=== PATIENT | male | born 1950 | race Two or more races ===

== ENCOUNTER → 2025-01-24 | Outpatient (CLI) | payer OTHER ==
[~2025-01-24] VITALS: Ht 161.3 cm; Wt 75.7 kg
[2025-01-24 15:58] VITALS: PULSE 84; RESP 15; O2SAT 96
[2025-01-24 16:14] VITALS: PULSE 85; RESP 16
[2025-01-24] MEDS: albuterol 2.5 MG/3 ML nebule NEB ONE (16:31)
--- NOTE | 2025-01-25 17:05 | PROCEDURE NOTE - Respiratory ---
Procedure Note-Respiratory Providers to CC Copies To 1: ALMITA DOE DO Procedure Name: This is a spirometry study dated January 24, 2025. The spirometry study was performed both before and after inhaled bronchodilator. Spirometry measurements: Both the forced vital capacity and the FEV1 show severe reduction. The FEV1 ratio is also reduced. All of the measured flow rates are quite low. After inhaled bronchodilator there is significant improvement in the FEV1 and some of the flow rate measurements. Conclusion: This study shows severe abnormality. There is evidence for severe obstructive ventilatory defect. The obstructive process is somewhat reversible with inhaled bronchodilator. 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 This patient should continue to use bronchodilator medication. There is also evidence for a restrictive ventilatory defect based on the significant reduction in the vital capacity measurement. This patient is status post left lower lobe lobectomy and this would partially explain the reduced vital capacity. Clinical correlation is suggested. We have no previous studies for comparison. DONOVAN FAJARDO MD Jan 25, 2025 17:05
== END | disposition home or self-care (01) ==
LOC: RT 15:13
PROVIDERS: ATTEND Chiropractor
DX: C34.90 Malignant neoplasm of unspecified part of unspecified bronchus or lung (principal)
CPT/HCPCS: 94060; 94760; J7030